=== PATIENT | female | born 1995 | race Two or more races ===

== ENCOUNTER 2017-02-20 07:38 | Emergency (ER) | payer SELFPAY ==
[~2017-02-20] VITALS: Ht 162.6 cm; Wt 56.7 kg
[~2017-02-20 07:38] MED LIST: DOXY25TA16 PO; FAMO-63 PO; HYDR-2666 PO; NITR100C62 PO; ONDA4TAB10 SL; PYRI25TA3 PO; birthcontrol implant
[2017-02-20 08:03] VITALS: BP 135/76
--- NOTE | 2017-02-20 08:08 | PHYS DOC ---
Past Medical History Past Medical History: No Pertinent History Past Surgical History: No Surgical History Alcohol Use: Rarely Drug Use: None Adult General Chief Complaint Chief Complaint: NAUSEA/VOMITING/DIARRHA HPI HPI Patient is a 21 year old female presents emergency Department with a complaint of nausea and vomiting that began earlier this morning. Patient is actually here with an older sibling that has complaints of nausea, vomiting and diarrhea. They believe it may be associated with eating [place] food last night and several other family members that ate there is well have similar symptoms. Patient denies any history of gastrointestinal diseases. She denies any history of abdominal surgeries or bowel obstructions. She denies antibiotic use, hospitalization or foreign travel within the past 90 days. Patient denies black , bloody or feculent emesis. Review of Systems Review of Systems Constitutional: Denies fever or chills [] Eyes: Denies change in visual acuity, redness, or eye pain [] HENT: Denies nasal congestion or sore throat [] Respiratory: Denies cough or shortness of breath [] Cardiovascular: No additional information not addressed in HPI [] GI: Denies abdominal pain, nausea, vomiting, bloody stools or diarrhea [] : Denies dysuria or hematuria [] Musculoskeletal: Denies back pain or joint pain [] Integument: Denies rash or skin lesions [] Neurologic: Denies headache, focal weakness or sensory changes [] Endocrine: Denies polyuria or polydipsia [] Current Medications Current Medications Current Medications Medications (Trade) Dose Ordered Sig/[facility] Start Time Stop Time Status Last Admin Dose Admin Ondansetron HCl (Zofran Odt) 4 mg 1X ONCE 02/20/17 08:15 02/20/17 08:16 DC 02/20/17 08:28 4 MG Allergies Allergies Allergies Coded Allergies Type Severity Reaction Last Updated Verified No Known Drug Allergies 10/31/14 No Physical Exam Physical Exam Constitutional: Well developed, well nourished, no acute distress, non-toxic appearance. Patient is not actively vomiting or dry heaving here. HENT: Normocephalic, atraumatic, bilateral external ears normal, oropharynx moist, no oral exudates, nose normal. [] Eyes: PERRLA, EOMI, conjunctiva normal, no discharge. [] Neck: Normal range of motion, no tenderness, supple, no stridor. [] Cardiovascular:Heart rate regular rhythm, no murmur [] Lungs & Thorax: Bilateral breath sounds clear to auscultation [] Abdomen: Abdomen is soft and nondistended. She has normoactive bowel sounds in all 4 quadrants. There is no palpable deformity to the abdominal wall or pulsatile mass. There is no focal area of tenderness, rebound or guarding. Skin: Warm, dry, no erythema, no rash. [] Back: No tenderness, no CVA tenderness. [] Extremities: No tenderness, no cyanosis, no clubbing, ROM intact, no edema. [] Neurologic: Alert and oriented X 3, normal motor function, normal sensory function, no focal deficits noted. [] Psychologic: Affect normal, judgement normal, mood normal. [] Current Patient Data Vital Signs Vital Signs Date Time Temp Pulse Resp B/P Pulse Ox O2 Delivery O2 Flow Rate FiO2 02/20/17 08:03 98.5 90 18 135/76 100 Room Air 98.5 Lab Values Laboratory Tests Test 02/20/17 07:24 POC Urine HCG, Qualitative Hcg negative (Negative) EKG EKG [] Radiology/Procedures Radiology/Procedures [] Course & Med Decision Making Course & Med Decision Making Patient been set for discharge for approximately 15 minutes. I was informed by another nurse that patient stated she was continued to have "symptoms". I went in to speak to the patient. She states that she still feels nauseous. She has not vomited since she received the Zofran. I informed the patient that she needs to continue to allow the medication to subside the nausea. Dragon Disclaimer Dragon Disclaimer This electronic medical record was generated, in whole or in part, using a voice recognition dictation system. Departure Departure Impression: Primary Impression: Nausea and vomiting Disposition: 01 HOME, SELF-CARE Condition: STABLE Referrals: NO PCP (PCP) Patient Instructions: Nausea and Vomiting, [id number] Additional Instructions: 1. Your symptoms may either be due to the food that she wait last night or a virus is affecting you and other members of the family. Either way, the treatment is the same. 2. Review the discharge instructions provided for self-care and reasons to return to the emergency department. 3. Take the medication as prescribed. 4. Drink 8-10, 10 ounce glasses of non-caffeinated beverage to help with hydration. 5. Follow-up with a primary care doctor next week if symptoms persist. Scripts Ondansetron (Zofran Odt)4 Mg Tab.rapdis1 Tab SL Q8HRS #10 TAB Prov:TIMO HOYOS 02/20/17 TIMO HOYOS Feb 20, 2017 08:08
[2017-02-20] MEDS ORDERED: ONDANSETRON ODT 4 MG TAB.RAPDIS PO ONE (08:15)
[2017-02-20] MEDS ORDERED: ONDA4TAB10 SL (08:40)
== END 2017-02-20 09:36 | disposition home or self-care (01) ==
LOC: ER 07:38
DX: R11.2 Nausea with vomiting, unspecified (principal); R19.7 Diarrhea, unspecified
CPT/HCPCS: 81025; 99283; Q0162

== ENCOUNTER 2018-10-26 04:47 | Emergency (ER) | payer SELFPAY ==
[~2018-10-26] VITALS: Ht 162.6 cm; Wt 63.5 kg
[~2018-10-26 04:47] MED LIST changes: -HYDR-2666 PO; +HYDR-2761 PO
--- NOTE | 2018-10-26 05:25 | PHYS DOC ---
Past Medical History Past Medical History: No Pertinent History Past Surgical History: No Surgical History Alcohol Use: Occasionally Drug Use: None Adult General Chief Complaint Chief Complaint: SHOULDER INJURY HPI HPI Patient is a 23 year old female who presents with left shoulder dislocation. Patient states she did not fall today. She did lose her balance and as she reached to prevent herself from falling she felt a pop in the left shoulder. She does have a prior history of 1 dislocation in that same shoulder about a year earlier. She primarily complains of pain and decreased range of motion. The accident happened just prior to coming to the ER. No additional injuries. Review of Systems Review of Systems Constitutional: Denies fever HENT: Denies nasal Respiratory: Denies Cardiovascular: No additional information Musculoskeletal: Denies back pain Integument: Denies rash Neurologic: Denies neuro symptoms All other systems were reviewed and found to be within normal limits, except as documented in this note. Current Medications Current Medications Current Medications Medications (Trade) Dose Ordered Sig/Shree Start Time Stop Time Status Last Admin Dose Admin Fentanyl Citrate (Fentanyl 2ml Vial) 100 mcg 1X ONCE 10/26/18 05:30 10/26/18 05:31 DC 10/26/18 05:40 100 MCG Ondansetron HCl (Zofran) 4 mg 1X ONCE 10/26/18 05:30 10/26/18 05:31 DC 10/26/18 05:21 4 MG Propofol (Diprivan) 200 mg 1X ONCE 10/26/18 05:30 10/26/18 05:31 DC 10/26/18 05:44 200 MG Sodium Chloride 1,000 ml @ 1,000 mls/hr 1X ONCE 10/26/18 05:30 10/26/18 06:29 DC 10/26/18 05:24 1,000 MLS/HR Allergies Allergies Allergies Coded Allergies Type Severity Reaction Last Updated Verified No Known Drug Allergies 10/31/14 No Physical Exam Physical Exam Constitutional: Well developed, well nourished, mild distress 2/2 pain, non- toxic appearance HENT: Normocephalic, atraumatic, bilateral external ears normal, oropharynx moist Eyes: PERRLA Neck: Normal range of motion Lungs & Thorax: Bilateral breath sounds clear to auscultation Abdomen: Bowel sounds normal, soft Skin: Warm, dry, no erythema Back: No tenderness Extremities: No tenderness Neurologic: Alert and oriented X 3 Psychologic: Affect normal Current Patient Data Vital Signs Vital Signs Date Time Temp Pulse Resp B/P (MAP) Pulse Ox O2 Delivery O2 Flow Rate FiO2 10/26/18 05:40 16 100 Room Air 10/26/18 05:35 97.8 92 122/73 3.0 74 3.0 EKG EKG [] Radiology/Procedures Radiology/Procedures Initial shoulder XR + for anterior dislocation Post-reduction film: reduced. No fracture. Course & Med Decision Making Course & Med Decision Making Pertinent Labs and Imaging studies reviewed. (See chart for details) Patient is evaluated for probable left shoulder dislocation. X-rays are ordered. Will plan on conscious sedation. Orders placed for pain medications. Patient is ASA class I Procedure note: Reduction of anterior shoulder dislocation. Oxygen is placed on the patient. Informed consent is obtained. Monitors her connected. Suction and airway equipment is readily available. Timeout is performed. Patient identity is verified using her birthday and her name and is compared to her ID band. The patient was given a dose of fentanyl 100 g. This was followed by 30 mg of propofol. The patient promptly fell asleep. She did not have any desaturation. The left shoulder was gently externally rotated with some longitudinal traction and with the elbow bent to 90. There was a subtle click in the shoulder was reduced easily and with minimal force. Post reduction x-ray was completed and revealed that the dislocation had been reduced. There were no adverse events during the procedure. Please refer to nursing documentation for exact times of medications. 06:35: Patient is now awake and alert. She is tolerating by mouth. Vital signs are stable. Plan is for discharge home. She is provided some medication for pain to use at home. She is referred to orthopedics. Shoulder immobilizer was placed. Patient is advised to keep this in place all the time except when bathing until she follows up with orthopedics. Return to the ER if the dislocation reoccurs. All her questions are answered. She is accompanied by her sister who will drive her home this morning. Constance Disclaimer Constance Disclaimer This electronic medical record was generated, in whole or in part, using a voice recognition dictation system. Departure Departure Disposition: 01 HOME, SELF-CARE Condition: GOOD Referrals: NO PCP (PCP) Scripts Hydrocodone/Apap 5-325 (NORCO 5-325 TABLET) 1 Each Tablet 1-2 EACH PO PRN Q6HRS PRN for SEVERE PAIN, #15 as needed for pain Prov: TOÑITO ALVARADO DO 10/26/18 Ibuprofen (IBUPROFEN) 800 Mg Tablet 800 MG PO PRN TID PRN for MILD PAIN, #20 TAB take with food or milk to avoid upsetting stomach Prov: TOÑITO ALVARADO DO 10/26/18 TOÑITO ALVARADO DO Oct 26, 2018 05:25
[2018-10-26] MEDS ORDERED: PROPOFOL 10 MG/ML (20ML) VIAL. IV ONE (05:30)
[2018-10-26] MEDS ORDERED: fentaNYL PF VIAL 100 MCG/2 ML VIAL IV ONE ×2 (05:30)
[2018-10-26] MEDS ORDERED: IV NORMAL SALINE 1000ML BAG 1,000 ML IV ONE (05:30)
[2018-10-26] MEDS ORDERED: ONDANSETRON PF 4 MG/2 ML VIAL. IV ONE (05:30)
[2018-10-26 05:35] VITALS: BP 122/73
--- NOTE | 2018-10-26 05:52 | RAD ---
AP shoulder radiograph 10/26/2018 CLINICAL HISTORY: Fall with injury to the left shoulder. An AP portable digital radiograph of the left shoulder was obtained. The left humeral head is medial and inferior to the glenoid consistent with an anterior dislocation of the left shoulder. No fracture is seen. IMPRESSION: Anterior dislocation of the left shoulder. Electronically signed by: Benito Mendoza MD (10/26/2018 5:49 AM) [id number]
--- NOTE | 2018-10-26 06:21 | RAD ---
2 view radiographs of the left shoulder 10/26/2018 CLINICAL HISTORY: Post reduction of a dislocation of the left shoulder. AP and transscapular digital radiographs of the left shoulder were obtained. Comparison study is dated earlier the same day. The previously noted anterior dislocation of the left shoulder has been reduced. The left humeral head now articulates normally with the glenoid. No fracture is seen. IMPRESSION: Post reduction of an anterior dislocation of the left shoulder. No fracture is seen. Electronically signed by: Benito Mendoza MD (10/26/2018 6:17 AM) [id number]
[2018-10-26] MEDS ORDERED: IBUP-1060 PO (06:28)
[2018-10-26] MEDS ORDERED: HYDR-3164 PO (06:28)
[2018-10-26 06:45] VITALS: BP 110/62
== END 2018-10-26 06:59 | disposition home or self-care (01) ==
LOC: ER 04:47
DX: S43.015A Anterior dislocation of left humerus, initial encounter (principal); X50.9XXA Other and unspecified overexertion or strenuous movements or postures, initial encounter; Y93.89 Activity, other specified; Y92.89 Other specified places as the place of occurrence of the external cause; Y99.8 Other external cause status
CPT/HCPCS: 23650; 73020; 73030; 96374; 96375; 99285; J2405; J2704; J3010; J7030

== ENCOUNTER 2019-01-30 16:10 | Emergency (ER) | payer SELFPAY ==
[~2019-01-30] VITALS: Ht 162.6 cm; Wt 68.0 kg
[~2019-01-30 16:10] MED LIST changes: +HYDR-3164 PO; +IBUP-1060 PO
[2019-01-30 18:17] VITALS: BP 122/89
[2019-01-30] MEDS ORDERED: ONDANSETRON ODT 4 MG TAB.RAPDIS. PO ONE (18:45)
[2019-01-30] MEDS ORDERED: ONDA4TAB12 PO (19:22)
--- NOTE | 2019-01-30 19:23 | PHYS DOC ---
Past Medical History Past Medical History: No Pertinent History Past Surgical History: No Surgical History Alcohol Use: Occasionally Drug Use: None Adult General Chief Complaint Chief Complaint: NAUSEA/VOMITING/DIARRHA HPI HPI Patient is a 23 year old female who presents with nausea and vomiting after she drank too much alcohol last night. The patient states that she has vomited off and on all day. She is having bouts of nausea. She denies using recreational drugs. She denies any possibility of . Review of Systems Review of Systems Constitutional: Denies fever or chills [] Respiratory: Denies cough or shortness of breath [] Cardiovascular: No additional information not addressed in HPI [] GI: See history of present illness : Denies dysuria or hematuria [] Musculoskeletal: Denies back pain or joint pain [] Integument: Denies rash or skin lesions [] Neurologic: Denies headache, focal weakness or sensory changes [] Endocrine: Denies polyuria or polydipsia [] All other systems were reviewed and found to be within normal limits, except as documented in this note. Current Medications Current Medications Current Medications Medications (Trade) Dose Ordered Sig/Shree Start Time Stop Time Status Last Admin Dose Admin Ondansetron HCl (Zofran Odt) 4 mg 1X ONCE 01/30/19 18:45 01/30/19 18:46 DC 01/30/19 19:12 4 MG Allergies Allergies Allergies Coded Allergies Type Severity Reaction Last Updated Verified No Known Drug Allergies 10/31/14 No Physical Exam Physical Exam Constitutional: Well developed, well nourished, no acute distress, non-toxic appearance. [] Cardiovascular:Heart rate regular rhythm, no murmur [] Lungs & Thorax: Bilateral breath sounds clear to auscultation [] Abdomen: Bowel sounds normal, soft, mild epigastric tenderness, no masses, no pulsatile masses. [] Skin: Warm, dry, no erythema, no rash. [] Back: No tenderness, no CVA tenderness. [] Extremities: No tenderness, no cyanosis, no clubbing, ROM intact, no edema. [] Neurologic: Alert and oriented X 3, normal motor function, normal sensory function, no focal deficits noted. [] Psychologic: Affect normal, judgement normal, mood normal. [] Current Patient Data Vital Signs Vital Signs Date Time Temp Pulse Resp B/P (MAP) Pulse Ox O2 Delivery O2 Flow Rate FiO2 01/30/19 18:17 98.6 16 122/89 (100) 99 Room Air 98.6 Lab Values Laboratory Tests Test 01/30/19 18:59 POC Urine HCG, Qualitative Hcg negative (Negative) EKG EKG [] Radiology/Procedures Radiology/Procedures [] Course & Med Decision Making Course & Med Decision Making Pertinent Labs and Imaging studies reviewed. (See chart for details) The patient was given Zofran in the emergency department. She has not vomited since she has been in the emergency department. She has a negative urine test. She has been given a prescription for Zofran Dragon Disclaimer Dragon Disclaimer This electronic medical record was generated, in whole or in part, using a voice recognition dictation system. Departure Departure Impression: Primary Impression: Nausea and vomiting Disposition: 01 HOME, SELF-CARE Condition: STABLE Referrals: NO PCP (PCP) Patient Instructions: How Much is Too Much Alcohol, [id number], Nausea and Vomiting Additional Instructions: Refrain from drinking alcohol. Use the Zofran to help hold down fluids. Do get lots of rest. Follow-up with your primary care provider in 2 days if not improving or return to the emergency department if worsening. Scripts Ondansetron (ONDANSETRON ODT) 4 Mg Tab.rapdis 1 TAB PO PRN Q6-8HRS for nausea, #16 TAB Prov: RIGOBERTO BROWN APRN 01/30/19 RIGOBERTO BROWN APRN Jan 30, 2019 19:23
== END 2019-01-30 19:36 | disposition home or self-care (01) ==
LOC: ER 16:10
DX: R11.2 Nausea with vomiting, unspecified (principal); R10.13 Epigastric pain
CPT/HCPCS: 81025; 99283; Q0162

== ENCOUNTER 2019-11-22 04:52 | Emergency (ER) | payer SELFPAY ==
[~2019-11-22] VITALS: Ht 165.1 cm; Wt 63.5 kg
[~2019-11-22 04:52] MED LIST changes: +ONDA4TAB12 PO
[2019-11-22 05:35] VITALS: BP 135/80
--- NOTE | 2019-11-22 05:40 | PHYS DOC ---
Text Text No insect or foreign body identified. Colace placed for cerumen impaction. Should kill insect if present. Will irrigate ear. Recommend avoiding insertion of foreign bodies and follow up with ENT. General Chief Complaint: FOREIGNBODY EAR Stated Complaint: REPORTS BUG IN R EAR X 4 HRS Time Seen by MD: 05:38 Source: patient Exam Limitations: no limitations History of Present Illness Initial Comments Patient is a 24-year-old female presents with foreign body/insect sensation in right ear canal. Patient awoke from sleep and half hours ago with sensation. Ports that she feels crawling inside her year. Patient used vegetable oil to kill the insect and attempted to remove it with paperclip. Denies change in hearing, no otorrhea or bleeding. No other acute symptoms or complaints. Timing/Duration: abrupt Severity: mild Location: ear (R) Modifying Factors: improves with activity Allergies: Coded Allergies: No Known Drug Allergies (Unverified , 10/31/14) Past Medical History Medical History: no pertinent history Constitutional: no symptoms reported, see HPI Eyes: no symptoms reported, see HPI Nose: no symptoms reported, see HPI Mouth: no symptoms reported, see HPI Physical Exam General Appearance: WD/WN, no apparent distress Eyes: bilateral eye normal inspection, bilateral eye PERRL, bilateral eye EOMI Ears: right ear auricle normal, right ear canal normal, right ear other (cerumen impaction, unable to visualize TM, no foreign body or insect visualized) Nose: normal inspection Mouth/Throat: normal mouth inspection ESME POLLARD DO Nov 22, 2019 05:40
[2019-11-22] MEDS ORDERED: DOCUSATE 100 MG/10 ML SOLUTION. AD ONE (06:00)
== END 2019-11-22 06:38 | disposition home or self-care (01) ==
LOC: ER 04:52
DX: H93.8X1 Other specified disorders of right ear (principal)
CPT/HCPCS: 99282

== ENCOUNTER 2021-06-28 19:14 | Emergency (ER) | payer SELFPAY ==
[~2021-06-28 19:14] MED LIST changes: -PYRI25TA3 PO; +PYRI50TA6 PO
== END 2021-06-28 20:15 | disposition left against medical advice (07) ==
LOC: ER 19:14
DX: K06.8 Other specified disorders of gingiva and edentulous alveolar ridge (principal); Z53.21 Procedure and treatment not carried out due to patient leaving prior to being seen by health care provider